=== PATIENT | male | born 1960 | race African-American/Black ===

== ENCOUNTER 2018-02-24 01:47 | Emergency (ER) | payer MEDICAID ==
[~2018-02-24] VITALS: Ht 175.3 cm; Wt 72.0 kg
[2018-02-24] MEDS ORDERED: LIDOCAINE HCL/PF 1% 10 MG/ML 5ML VIAL IJ ONE (07:30)
[2018-02-24] MEDS ORDERED: TETANUS, DIPHTHERIA, PERTUSSIS VAC/PF 0.5ML (>7YR OLD) IM ONE (07:30)
[2018-02-24 12:15] VITALS: BP 112/73
== END 2018-02-24 12:24 | disposition home or self-care (01) ==
LOC: ER 02:19
DX: S01.81XA Laceration without foreign body of other part of head, initial encounter (principal); S01.412A Laceration without foreign body of left cheek and temporomandibular area, initial encounter; H57.12 Ocular pain, left eye; X99.0XXA Assault by sharp glass, initial encounter; Y93.89 Activity, other specified; Y92.89 Other specified places as the place of occurrence of the external cause; F10.10 Alcohol abuse, uncomplicated; Y90.9 Presence of alcohol in blood, level not specified
CPT/HCPCS: 12015; 70450; 70486; 90471; 90715; 99284; J3490; Z7610

== ENCOUNTER 2018-03-03 11:25 | Emergency (ER) | payer MEDICAID ==
[~2018-03-03] VITALS: Ht 180.3 cm; Wt 72.7 kg
[2018-03-03 12:20] VITALS: BP 155/90
== END 2018-03-03 12:33 | disposition home or self-care (01) ==
LOC: ER 11:25
DX: Z48.02 Encounter for removal of sutures (principal)
CPT/HCPCS: 99281